=== PATIENT | male | born 1970 | race Caucasian/White ===

== ENCOUNTER 2017-03-08 18:26 | Observation (INO) | payer BC ==
[~2017-03-08] VITALS: Ht 167.6 cm; Wt 68.0 kg
--- NOTE | ~2017-03-08 | ER ---
PATIENT'S NAME: DIANELYS ALONSO [facility] AGE: 46 Y [address] ROOM: [place] [address] LOCATION: [facility] [place] ADMIT DATE: 03/08/2017 ER/Outpatient Report DISCHARGE DATE: FAMILY PHYSICIAN: PHYSICIAN, NO ATTENDING PHYSICIAN: EDUARDO SANCHEZ Time of Arrival: 1834 hours. Time of Exam: 1848 hours. CHIEF COMPLAINT: Abdominal pain. HISTORY OF PRESENT ILLNESS: The patient states about 3:30 this afternoon he developed lower abdominal pain. He says it has intensified and gotten worse, goes from the mid epigastric all the way down into the lower abdomen and radiates around into his flank areas bilaterally. He has not been nauseated, no vomiting. He has not had fever or chills. No pain or discomfort with urination. Had a normal bowel movement this morning. Has never had pain like this before. ALLERGIES: HE HAS NO KNOWN ALLERGIES. CURRENT MEDICATIONS: None. PAST MEDICAL HISTORY: Negative. SURGERIES: Negative. SOCIAL HISTORY: He denies use of tobacco or drugs. Drinks alcohol on an occasional basis only. REVIEW OF SYSTEMS: Negative other than those mentioned in the HPI. PHYSICAL EXAMINATION: VITAL SIGNS: He weighed 68 kg. Blood pressure is 144/84, pulse is 69, respirations 16, temperature of 98.7, and O2 saturation is 97% on room air. GENERAL: He is awake, alert, and oriented x4. SKIN: [place], warm, and dry. RESPIRATIONS: Even and nonlabored. Lung sounds are clear throughout. PATIENT'S NAME: DIANELYS ALONSO [facility] AGE: 46 Y [address] ROOM: [place] [address] LOCATION: [facility] [place] ADMIT DATE: 03/08/2017 ER/Outpatient Report DISCHARGE DATE: FAMILY PHYSICIAN: PHYSICIAN, NO ATTENDING PHYSICIAN: EDUARDO SANCHEZ HEART: Regular rate and rhythm. ABDOMEN: Soft, nondistended. Bowel sounds are present. He does have some flank tenderness. EMERGENCY ROOM COURSE: The patient was able to urinate and give us a urine sample. Saline lock was initiated. Lab work was drawn. Fluids of normal saline were started at a wide-open rate. Toradol 30 mg IV was given. CBC is within normal limits. Chem Panel: BUN 14 with creatinine 1.4. Lactate was 2. Procalcitonin is negative. Clean-catch UA shows 25 leukocytes, negative nitrites, 250 of blood. Micro shows 5-10 white blood cells, 50-100 red blood cells, rare bacteria. CT scan for stone protocol was completed. Radiologist reports the patient has a 6-mm obstructing stone of the left proximal ureter and has moderate left hydronephrosis as a result. Dr. Curry was contacted. He states the patient could stay for pain control and get a stent in the morning or he could go home and follow up with their office on Saturday. I did discuss the options with the patient, and he prefers to stay. Talked with Dr. Sanchez, hospitalist. The patient will be placed in observation. IMPRESSION: Left renal calculi. PLAN: The patient will be placed in observation for care of the hospitalist and Dr. Curry. TAMIKO MARES APRN FOR MD GUERO YOUNG/kami /[id number] d: 03/08/172206 t: 03/20/171816, OUTPATIENT REPORT
--- NOTE | ~2017-03-08 | HP ---
PATIENT'S NAME: DIANELYS ALONSO [facility] AGE: 46 Y [address] ROOM: [place] [address] [place] [facility] [place]: 03/08/2017 History & Physical DISCHARGE DATE: FAMILY PHYSICIAN: PHYSICIAN, NO ATTENDING PHYSICIAN: EDUARDO HOUGH DATE OF SERVICE: CHIEF COMPLAINT: Abdominal pain. HISTORY OF PRESENT ILLNESS: A 46-year-old gentleman with no significant past medical history, started having sudden onset of abdominal pain which is located in the left flank, radiating to the groin, sharp, constant, and 10/10. Not associated with any nausea, vomiting, or hematuria, and triggered the visit to the emergency department. He received Toradol in the emergency department with the resolution of pain. On my encounter, he said he is pain-free right now. Does not have any chest pain, any shortness of breath, any abdominal pain, constipation, diarrhea, any leg swelling, any trouble breathing, any headache, PND, or orthopnea. REVIEW OF SYSTEMS: All other systems reviewed and were negative except what is mentioned in the HPI. MEDICATIONS: None. PAST MEDICAL HISTORY: None. ALLERGIES: NONE. SOCIAL HISTORY: No smoking or alcohol. FAMILY HISTORY: No significant history of coronary artery disease, stroke, or diabetes. PHYSICAL EXAMINATION: VITAL SIGNS: Reviewed and are all stable. GENERAL: In no acute distress. Alert and oriented x3. HEENT: Head; atraumatic and normocephalic. Eyes; nonicteric. No pallor. PATIENT'S NAME: DIANELYS ALONSO [facility] AGE: 46 Y [address] ROOM: [place] [address] [place] [facility] [place]: 03/08/2017 History & Physical DISCHARGE DATE: FAMILY PHYSICIAN: PHYSICIAN, NO ATTENDING PHYSICIAN: EDUARDO HOUGH Oropharynx; moist mucous membranes. CARDIOVASCULAR: S1 and S2. No murmurs, gallops, or rubs. LUNGS: Clear to auscultation bilaterally. ABDOMEN: Soft, nontender, nondistended. Bowel sounds present. EXTREMITIES: No clubbing, cyanosis, or edema. PSYCHIATRIC: Normal affect, mood, and speech. Cranial nerves 2 through 12 are intact. No motor or sensory deficits. MUSCULOSKELETAL: No muscle tenderness or joint swelling noted. ENDOCRINE: No thyromegaly or myxedema noted. SKIN: No blemishes or rashes noted. LABORATORY DATA AND IMAGING STUDIES: CT scan of the abdomen was done, which did show left-sided 6 mm obstructing stone with mild hydronephrosis. Laboratory work was impressive only for creatinine of 1.4. ASSESSMENT AND PLAN: 1. Acute kidney injury. 2. Urolithiasis. PLAN: We are going to admit this patient for observation. IVF and pain control will be provided. Urology consult in the morning. SCDs for DVT prophylaxis. Regular diet. N.p.o., midnight. MD LIZ MAJOR/kami /[id number] D: T: HISTORY & PHYSICAL
--- NOTE | ~2017-03-08 | DS ---
PATIENT'S NAME: DIANELYS ALONSO [facility] AGE: 46 Y [address] ROOM: [place] [address] LOCATION: [facility] [place] ADMIT DATE: 03/08/2017 Discharge Summary DISCHARGE DATE: 03/09/2017 FAMILY PHYSICIAN: PHYSICIAN, NO ATTENDING PHYSICIAN: Theresa Sanchez PRIMARY DIAGNOSES: 1. Acute kidney injury. 2. Left ureteral stone. OPERATIONS/PROCEDURES: Cystoscopy with left ureteral stent placement performed by Dr. Curry on 03/09/2017. HISTORY OF PRESENTING ILLNESS AND REASON FOR ADMISSION: Please refer to the H and P dictated on 03/08/2017. HOSPITAL COURSE: The patient was admitted to the hospital as noted above with a presumptive diagnosis of severe abdominal pain and flank pain. His preliminary evaluation did reveal the presence of a left ureteral stone. Dr. Curry, Urology, was consulted. The Hospitalist Service was requested to admit the patient and provide medical management. His clinical condition was stable over the course of his hospital stay. He did receive some ketorolac for relief of renal colic. Ultimately, he was taken for cysto, and left ureteral stent was placed as described above without any significant complications. By day 2, his acute kidney injury had resolved. This was felt to be able to be followed clinically. At that point, it was felt he would be stable enough for discharge to home with plans for close clinical followup with Urology and eventual establishment with Primary Care. DISCHARGE INSTRUCTIONS: DIET: Regular, as tolerated. ACTIVITY: As tolerated. MEDICATIONS: 1. Levofloxacin 750 mg p.o. daily x2 more days. 2. [place] 5/325 one tablet p.o. q.6 hours p.r.n. pain. The patient was given a prescription for 15 tablets. FOLLOWUP: He will follow up with his primary care physician, yet to be established, in 1 to 2 weeks. He will follow up with Dr. Curry, PATIENT'S NAME: DIANELYS ALONSO [facility] AGE: 46 Y [address] ROOM: [place] [address] LOCATION: [facility] [place] ADMIT DATE: 03/08/2017 Discharge Summary DISCHARGE DATE: 03/09/2017 FAMILY PHYSICIAN: PHYSICIAN, NO ATTENDING PHYSICIAN: Khalid,Cardenas A Nephrology, for ureteral stent removal in 3 weeks. CONDITION ON DISCHARGE: Good. Total time spent on discharge process is 35 minutes. MD PAPITO BENEDICT/kami /[id number] d: 03/09/17 1714 t: 03/12/17 1729, DISCHARGE SUMMARY
--- NOTE | ~2017-03-08 | OR ---
PATIENT'S NAME: DIANELYS ALONSO [facility] AGE: 46 Y [address] ROOM: [place] [address] [place]: [facility] [place]MIT DATE: 03/08/2017 OR/Procedure Report DISCHARGE DATE: 03/09/2017 FAMILY PHYSICIAN: , ASA ATTENDING PHYSICIAN: Theresa Sanchez SURGEON: Ana Curry MD CAKE DECORATOR: DATE OF PROCEDURE: 03/09/2017 PREOPERATIVE DIAGNOSIS: Left proximal ureter stone. POSTOPERATIVE DIAGNOSIS: Left proximal ureter stone. PROCEDURE PERFORMED: Cystoscopy, left stent placement. ANESTHESIA: MAC. COMPLICATIONS: None. INDICATION FOR PROCEDURE: The patient is a 46-year-old male with acute onset of left flank pain. Abdominopelvic CT scan reveals an approximately 5 mm [id number] left ureter stone with pain and obstruction. DETAILS OF PROCEDURE: After informed consent was obtained, the patient was taken to the operating room. A MAC anesthetic was applied. He was placed in the dorsal lithotomy position. The groin area was prepped and draped in normal sterile fashion. Cystoscope was introduced into the urethra and bladder without difficulty. The left ureteral orifice was identified and cannulated with a guidewire up into the renal pelvis. Next, a 4.8 multi- length ureteral stent was passed over a guidewire and beyond the stone with some difficulty up into the renal pelvis. Radiograph imaging showed good position of the stent. The patient tolerated the procedure well, was transferred to recovery room in good condition. MD KENDRA STAPLETON/modl /[id number] d: 03/10/172021 t: 03/20/17 1158, OPERATIVE SUMMARY
[2017-03-08 18:52] LABS: BILIRUBIN URINE NEGATIVE (NEGATIVE); BLOOD URINE 250 /UL (NEGATIVE); COLOR URINE YELLOW (YELLOW); GLUCOSE URINE NEGATIVE (NEGATIVE); KETONE URINE 5 mg/dL (NEGATIVE); LEUKOCYTES URINE 25 /UL (NEGATIVE); NITRITE URINE NEGATIVE (NEGATIVE); PROTEIN URINE 30 mg/dL (NEGATIVE); TURBIDITY URINE CLEAR (CLEAR); UROBILINOGEN URINE 1 mg/dL (NORMAL)
[2017-03-08 18:56] LABS: BASOPHIL # 0.1 K/uL (0.0-0.2); BASOPHIL % 0.8 %; EOSINOPHIL # 0.2 K/uL (0.0-0.5); EOSINOPHIL % 2.4 %; HEMATOCRIT 46.8 % (37.0-53.0); HEMOGLOBIN 16.3 g/dL (12.0-17.0); IMMATURE GRANULOCYTE % 0.2 %; LYMPHOCYTE # 1.4 K/uL (0.8-4.0); LYMPHOCYTE % 16.1 %; MCH 30.9 pg (27.0-34.0); MCHC 34.8 gm/dL (32.0-36.5); MCV 88.8 fl (83.0-98.0); MONOCYTE # 0.6 K/uL (0.0-1.0); MONOCYTE % 6.9 %; MPV 11.2 fl (9.4-12.4); NEUTROPHIL # (ANC) 6.4 K/uL (1.4-9.0); NEUTROPHIL % 73.6 %; NRBC % 0 /100WBC (0-0.00); PLATELET COUNT 241 K/uL (150-450); RBC 5.27 M/uL (4.00-6.00); RDW-CV 12.1 % (11.9-14.6); WBC 8.7 K/uL (4.0-11.0)
[2017-03-08 19:15] LABS: ANION GAP 10.9 (10.0-19.0); CALCIUM 8.3 mg/dL (8.5-10.5); CREATININE 1.4 mg/dL (0.6-1.3); POTASSIUM 3.9 mMol/L (3.7-5.1); TOTAL BILIRUBIN 1.3 mg/dL (0.0-1.5); TOTAL PROTEIN 7.5 g/dL (6.0-8.4)
[2017-03-08 19:23] LABS: RBC URINE 50-100 #/HPF (NEGATIVE)
[2017-03-08 19:25] LABS: AMORPHOUS URINE 2+ (NEGATIVE); BACTERIA URINE RARE (NEGATIVE); MUCUS URINE 3+ (NEGATIVE)
[2017-03-08 19:26] LABS: GRANULAR CASTS URINE 0-2 #/LPF (NEGATIVE)
--- NOTE | 2017-03-08 23:29 | NUR ---
Significant Event: Pt admitted from ER after he experiance bilateral lower abdominal pain and flank pain. pt was found to have 6 mm kidney stone on L side. will consult urology in AM. No medical problems. NKA. drinks occationaly. Not a smoker. No N/V. pain control. tordol given in ER. A/O. cooperative with cares will be NPO at midnight Follow up:
[2017-03-09 05:07] LABS: ANION GAP 9.9 (10.0-19.0); BLOOD UREA NITROGEN 12 mg/dL (6-24); CALCIUM 8.1 mg/dL (8.5-10.5); CHLORIDE 110 mMol/L (96-110); CO2 27 mMol/L (22-32); CREATININE 0.9 mg/dL (0.6-1.3); POTASSIUM 3.9 mMol/L (3.7-5.1); SODIUM 143 mMol/L (135-145)
--- NOTE | 2017-03-09 06:01 | NUR ---
Significant Event: Pt alert and Oriented x3. Cooperative with cares. Independent in room. no difficulty voiding no hematuria. No complaints of pain. LR @ 125. slept most of shift. VSS. RA. Urology to consult today. NPO since midnight Follow up:
[2017-03-09] MEDS ORDERED: NORCO 5-325 TA1 EACH PO (16:07)
[2017-03-09] MEDS ORDERED: LEVAQUIN750 MG PO (16:09)
--- NOTE | 2017-03-09 16:40 | NUR ---
Discharge instructions given to patient and significant other regarding follow up Dr appointments and outpt L) ESWL in 3 weeks. Patient verbalized understanding. Patient dismissed per pedis and accompanied to the vehicle by the CARPENTER'S ASSISTANT.
[2017-03-21] MEDS ORDERED: NAPROXEN SODIU220 M1 PO (16:06)
[2017-03-26] MEDS ORDERED: TYLENOL WITH C1 EACH PO (15:42)
== END 2017-03-09 16:40 | disposition disaster alternative care site (69) ==
LOC: GMED 18:26 → GMSU 19:56
PROVIDERS: Emergency Medicine; ADMIT Internal Medicine
PROC: 0T778DZ Dilation of Left Ureter with Intraluminal Device, Via Natural or Artificial Opening Endoscopic (ICD-10-PCS; principal; 2017-03-09)
DX: N13.2 Hydronephrosis with renal and ureteral calculous obstruction (principal); N17.9 Acute kidney failure, unspecified; N13.4 Hydroureter; K57.30 Diverticulosis of large intestine without perforation or abscess without bleeding; Z79.899 Other long term (current) drug therapy
CPT/HCPCS: C1769; C2617; G0378; J1885; J1956; J7030; J7120

== ENCOUNTER → 2017-03-26 | Day surgery (SDC) | payer BC ==
[~2017-03-26] VITALS: Ht 167.6 cm; Wt 65.9 kg
[~2017-03-26] MED LIST: LEVAQUIN750 MG PO; NAPROXEN SODIU220 M1 PO; NORCO 5-325 TA1 EACH PO; TYLENOL WITH C1 EACH PO
--- NOTE | ~2017-03-26 | OR ---
PATIENT'S NAME: DIANELYS ALONSO [facility] AGE: 46 Y [address] ROOM: [place] [address] LOCATION: [facility] [place] ADMIT DATE: 03/26/2017 OR/Procedure Report DISCHARGE DATE: FAMILY PHYSICIAN: PHYSICIAN, NO ATTENDING PHYSICIAN: Arabella Curry SURGEON: Arabella Curry MD [employer] [facility] TECHNICIAN: DATE OF PROCEDURE: 03/26/2017 PREOPERATIVE DIAGNOSIS: Left ureteral stone. POSTOPERATIVE DIAGNOSIS: Left ureteral stone. PROCEDURES PERFORMED: 1. Left ESWL. 2. Cystoscopy with stent removal. ANESTHESIA: MAC. COMPLICATIONS: None. INDICATION FOR PROCEDURE: The patient is a 46-year-old male who had acute onset of left flank pain. Abdominopelvic CT scan revealed a 5 mm proximal left ureteral stone with pain and obstruction. The patient underwent cystoscopy with stent placement and stone manipulation. The patient now presents for definitive therapy. DETAILS OF PROCEDURE: After informed consent was obtained, the patient was taken to the operating room. A MAC anesthetic was applied. He was placed in a supine position on the lithotripsy table. Fluoroscopy was then used to target his stone. He received shocks starting at 14 kilovolts and gradually increased to 24 kilovolts. The patient received a total of 3000 shocks and this 5 x 5 mm proximal left ureteral stone fragmented well with treatment. The groin area was prepped and draped in normal sterile fashion. Flexible cystoscope was introduced into the urethra and bladder without difficulty. The stent identified in the left ureteral orifice, engaged with forceps, and removed. The patient tolerated the procedure well and was transferred to recovery room in good condition. ARABELLA CURRY MD PATIENT'S NAME: DIANELYS ALONSO [facility] AGE: 46 Y [address] ROOM: [place] [address] LOCATION: [facility] [place] ADMIT DATE: 03/26/2017 OR/Procedure Report DISCHARGE DATE: FAMILY PHYSICIAN: , NO ATTENDING PHYSICIAN: Arabella Curry/modl /[id number] d: 03/27/172216 t: 04/09/17 1646, OPERATIVE SUMMARY
== END | disposition disaster alternative care site (69) ==
LOC: GPOC 03-20 09:00 → GSDC 09:00
PROC: 0TP98DZ Removal of Intraluminal Device from Ureter, Via Natural or Artificial Opening Endoscopic (ICD-10-PCS; principal; 2017-03-26)
PROC: 0TF7XZZ Fragmentation in Left Ureter, External Approach (ICD-10-PCS; 2017-03-26)
DX: N20.1 Calculus of ureter (principal); Z98.890 Other specified postprocedural states
CPT/HCPCS: J1956; J2001; J7030